=== PATIENT | female | born 1980 | race American Indian/Alaskan Native ===

== ENCOUNTER 2016-08-26 21:42 | Emergency (ER) | payer OTHER ==
[2016-08-26] MEDS ORDERED: PHENERGAN PO ONE (23:48)
[2016-08-26] MEDS ORDERED: TORADOL IM ONE (23:48)
--- NOTE | 2016-08-26 23:49 | Emergency Department Report ---
ED Headache HPI - General Chief Complaint: Headache Stated Complaint: GILMAN/COLD SWEATS/EYES LIGHT SENSITIVE Time Seen by Provider: 08/26/16 23:39 - History of Present Illness Initial Comments: This is a pleasant 36-year-old female who does not have a history of headaches. She reports headache in the frontal region for the last 4 days. It does come and go. She has tried Goody powder without relief. She did try sinus remedy today with moderate improvement. She feels tension in the back of her neck as well. Patient states that she did have headache once one year ago that also resolved with chiropractic. She denies any specific trauma she denies fevers. She is had occasional nausea but no vomiting with this. She denies any neurologic changes otherwise. No vision changes reported. The pain is throbbing in nature. No radiation is reported. Some nasal congestion as well as history of allergies. Quality: severe Associated Symptoms: nausea/vomiting, nasal congestion. denies: fatigue Allergies/Adverse Reactions: Allergies No Known Allergies Allergy (Unverified 07/20/16 16:18) Home Medications: Ambulatory Orders ALBUTEROL Inhaler [ProAir HFA Inhaler] 1 - 2 puff IH Q4H PRN 08/26/16 Ranitidine HCl [Zantac 150 MG TAB] 150 mg PO DAILY 08/26/16 clonazePAM [Klonopin] 1 mg PO Q8H PRN 08/26/16 ED Review of Systems ROS: Stated complaint: GILMAN/COLD SWEATS/EYES LIGHT SENSITIVE Other details as noted in HPI Comment: All other systems reviewed and negative Constitutional: denies: chills, fever Eyes: denies: eye pain, eye discharge, vision change ENT: congestion. denies: ear pain, throat pain Respiratory: denies: cough, shortness of breath, wheezing Cardiovascular: denies: chest pain, palpitations Endocrine: no symptoms reported Gastrointestinal: nausea. denies: abdominal pain, diarrhea Genitourinary: denies: urgency, dysuria, discharge Musculoskeletal: denies: back pain, joint swelling, arthralgia Skin: denies: rash, lesions Neurological: headache. denies: weakness, paresthesias Psychiatric: denies: anxiety, depression Hematological/Lymphatic: denies: easy bleeding, easy bruising ED Past Medical Hx - Past Medical History Previous Medical History?: Yes Hx Asthma: Yes Additional medical history: Acid reflux, anxiety - Surgical History Past Surgical History?: No - Social History Smoking Status: Current Every Day Smoker Substance Use Type: Alcohol - Medications Home Medications: Home Medications Medication Instructions Recorded Confirmed Last Taken Type ALBUTEROL Inhaler [ProAir HFA 1 - 2 puff IH Q4H PRN 08/26/16 08/26/16 Unknown History Inhaler] Ranitidine HCl [Zantac 150 MG TAB] 150 mg PO DAILY 08/26/16 08/26/16 08/26/16 History clonazePAM [Klonopin] 1 mg PO Q8H PRN 08/26/16 08/26/16 08/26/16 History ED Physical Exam - General Limitations: No Limitations General appearance: alert, in distress (uncomfortable due to pains) - Head Head exam: Present: atraumatic, normocephalic, normal inspection - Eye Eye exam: Present: normal appearance, PERRL, EOMI. Absent: scleral icterus - ENT ENT exam: Present: normal exam, mucous membranes moist, other (cobblestoning in posterior pharynx. no facial tenderness) - Neck Neck exam: Present: normal inspection, tenderness (posteriorly tension extending down to the trapezius bilaterally.), full ROM. Absent: meningismus, lymphadenopathy - Respiratory Respiratory exam: Present: normal lung sounds bilaterally. Absent: respiratory distress, wheezes, rales - Cardiovascular Cardiovascular Exam: Present: regular rate, normal rhythm. Absent: systolic murmur, diastolic murmur, rubs, gallop - GI/Abdominal GI/Abdominal exam: Present: soft, normal bowel sounds. Absent: distended, tenderness, guarding - Extremities Exam Extremities exam: Present: normal inspection, full ROM. Absent: pedal edema, calf tenderness - Back Exam Back exam: Present: normal inspection. Absent: tenderness, CVA tenderness (R), CVA tenderness (L) - Neurological Exam Neurological exam: Present: alert, oriented X3, CN II-XII intact, normal gait, other (nml sensation grossly) - Psychiatric Psychiatric exam: Present: normal affect, normal mood - Skin Skin exam: Present: warm, dry, intact, normal color. Absent: rash ED Course Vital Signs 08/26/16 08/26/16 08/27/16 22:01 23:43 00:02 Temperature 98.6 F 98.2 F Pulse Rate 92 H 96 H Respiratory 18 18 20 Rate Blood Pressure 137/90 Blood Pressure 117/75 [Left] O2 Sat by Pulse 97 99 99 Oximetry - Reevaluation(s) Reevaluation #1: 08/27/16 00:25 There are components of this headache did seem like tension and some components that seem like sinus headache I suspect there is a combination. Patient was given Toradol here as well as Phenergan for sleep and nausea. I feel this will be a good choice for her. I hope this will just abort the headache and she'll be a little reset. I have low suspicion for bad this. She is intact neurologically. She does not have strong history for headache. I do suspect the elevated there is an allergic component as well with allergies causing the postnasal drainage. I did encourage her to take decongestant or allergy medication daily. Safe for home. Critical care attestation.: If time is entered above; I have spent that time in minutes in the direct care of this critically ill patient, excluding procedure time. ED Disposition Clinical Impression: Headache Qualifiers: Headache type: unspecified Headache chronicity pattern: acute headache Intractability: not intractable Qualified Code(s): R51 - Headache Disposition: DISCHARGED TO HOME OR SELFCARE Is pt being admited?: No Does the pt Need Aspirin: No Condition: Stable Instructions: Acute Headache (ED) Additional Instructions: Continue with the decongestant or antiallergy medication at home. Drink plenty of fluids. Get plenty of rest. Referrals: JASWINDER ALEJO MD [Primary Care Provider] - 3-5 Days Time of Disposition: 23:50
[2016-08-27 00:20] VITALS: BP 139/88
== END 2016-08-27 00:30 | disposition home or self-care (01) ==
LOC: ED 21:42
DX: R51 Headache (principal); J45.909 Unspecified asthma, uncomplicated; F41.9 Anxiety disorder, unspecified; K21.9 Gastro-esophageal reflux disease without esophagitis; F17.200 Nicotine dependence, unspecified, uncomplicated
CPT/HCPCS: 96372; 99282; J1885; Q0169

== ENCOUNTER 2017-06-20 21:05 | Emergency (ER) | payer OTHER ==
[2017-06-20 22:11] VITALS: BP 130/85
[2017-06-20] MEDS ORDERED: TYLENOL PO ONE (22:11)
[2017-06-20] MEDS ORDERED: TYLENOL ONE (22:14)
[2017-06-21] MEDS ORDERED: TYLENOL ONE (01:35)
[2017-06-21] MEDS ORDERED: MOTRIN PO ONE (03:48)
[2017-06-21] MEDS ORDERED: MOTRIN ONE (03:50)
--- NOTE | 2017-06-21 06:38 | Emergency Department Report ---
Minor Respiratory - HPI Chief Complaint: Upper Respiratory Infection Stated Complaint: FLU SX Time Seen by Provider: 06/21/17 06:37 Duration: 1 Day Severity: moderate Minor Respiratory: Yes Rhinorrhea, Yes Able to Tolerate Fluids, Yes Cough, Yes Sick Contacts (emmanuel), Yes Fever, No Sore Throat, No Ear Pain, No Hemoptysis, No Chest Pain, No Shortness of Breath Other History: This is a 36 y.o. female that presents with generalized body aches, fever, and chills that started yesterday. 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 Patient states she went to class and all of a sudden so started feeling chills, body aches, and fatigue. She went home and took OTC cold medication with minimal improvement. Denies SOB, nausea, vomiting, chest pain, and sore throat. ED Review of Systems ROS: Stated complaint: FLU SX Other details as noted in HPI Constitutional: see HPI, chills, fever, malaise. denies: diaphoresis, weakness ENT: congestion. denies: ear pain, throat pain, dental pain, hearing loss, epistaxis Respiratory: cough. denies: shortness of breath, wheezing Cardiovascular: denies: chest pain, palpitations Gastrointestinal: denies: abdominal pain, nausea, vomiting, diarrhea Musculoskeletal: myalgia (genearlized body aches) Neurological: denies: headache, weakness, paresthesias ED Past Medical Hx - Past Medical History Previous Medical History?: Yes Hx Asthma: Yes Additional medical history: Acid reflux, anxiety - Surgical History Past Surgical History?: Yes Additional Surgical History: nose - Social History Smoking Status: Current Every Day Smoker Substance Use Type: Alcohol - Medications Home Medications: Home Medications Medication Instructions Recorded Confirmed Last Taken Type RX: ALBUTEROL Inhaler [ProAir HFA 1 - 2 puff IH Q4H PRN 08/26/16 08/26/16 Unknown History Inhaler] Ranitidine HCl [Zantac 150 MG TAB] 150 mg PO DAILY 08/26/16 08/26/16 08/26/16 History clonazePAM [Klonopin] 1 mg PO Q8H PRN 08/26/16 08/26/16 08/26/16 History Oseltamivir [Tamiflu] 75 mg PO BID 5 Days #10 cap 06/21/17 Unknown Rx RX: Benzonatate 200 mg PO DAILY PRN #30 capsule 06/21/17 Unknown Rx RX: Cetirizine HCl [Zyrtec] 10 mg PO DAILY #30 tablet 06/21/17 Unknown Rx RX: Ibuprofen 800 mg PO Q6H PRN #20 tablet 06/21/17 Unknown Rx Minor Respiratory Exam - Exam General: Vital signs noted. No distress. Alert and acting appropriately. HEENT: Yes Pharyngeal Erythema, Yes Moist Mucous Membranes, Yes Rhinorrhea, No Pharyngeal Exudates, No Conjuctival Injection, No Frontal Tenderness, No Maxillary Tenderness Ear: Neither TM Bulge, Neither TM Erythema, Neither EAC Pain, Neither EAC Discharge Neck: Yes Supple, No Adenopathy Lungs: Yes Good Air Exchange, Yes Cough, No Wheezes, No Ronchi, No Stridor, No Labored Respirations, No Retractions, No Use of Accessory Muscles, No Other Abnormal Lung Sounds Heart: Yes Regular, No Murmur Abdomen: Yes Normal Bowel Sounds, No Tenderness, No Peritoneal Signs Skin: No Rash, No Edema Neurologic: Alert and oriented, no deficits. Musculoskeletal: Unremarkable. ED Course Vital Signs 06/20/17 06/20/17 06/20/17 22:04 22:12 23:12 Temperature 101.6 F H Pulse Rate 133 H Respiratory 18 18 18 Rate Blood Pressure 130/85 O2 Sat by Pulse 97 Oximetry 06/21/17 06/21/17 06/21/17 03:52 04:52 06:00 Temperature 100 F H 98.5 F Pulse Rate 103 H Respiratory 18 18 18 Rate Blood Pressure O2 Sat by Pulse 98 Oximetry ED Medical Decision Making - Medical Decision Making This is a 36 y.o. Female presents with body aches, chills, and fever for 1 day. She is stable and examined by me. Patient given tylenol and ibuprofen once in ER. Temperature and HR trending down. Patient is non-toxic appearing. No labs or radiograph ordered. No acute signs of distress noted. Susceptible of influenza. Discussed plan with patient. She agreed with ER plan. Discharged home with option of tamiflu. Continue Supportive care. Encouraged to increase fluid intake to prevent dehydration. Follow up with primary care provider if symptoms are not improved in 5 days of therapy. Critical care attestation.: If time is entered above; I have spent that time in minutes in the direct care of this critically ill patient, excluding procedure time. ED Disposition Clinical Impression: Influenza, Viral syndrome Disposition: DC-01 TO HOME OR SELFCARE Is pt being admited?: No Does the pt Need Aspirin: No Condition: Stable Instructions: Influenza (ED), Viral Syndrome (ED) Additional Instructions: Wash hands frequently. Increase fluid intake to prevent dehydration and rest. Avoid large crowds and rest. Take medication as prescribed. Follow up with Primary Care Provider if SOB, fever uncontrolled, chest pain, or N/V. Prescriptions: RX: Benzonatate 200 mg PO DAILY PRN #30 capsule PRN Reason: Cough RX: Cetirizine HCl [Zyrtec] 10 mg PO DAILY #30 tablet RX: Ibuprofen 800 mg PO Q6H PRN #20 tablet PRN Reason: Pain Oseltamivir [Tamiflu] 75 mg PO BID 5 Days #10 cap Referrals: [facility] [Outside] - 3-5 Days [facility] [Outside] - 3-5 Days [facility] [Outside] - 3-5 Days Forms: Accompanied Note, Work/School Release Form(ED) Time of Disposition: 06:54 Print Language: WELSH
== END 2017-06-21 07:02 | disposition home or self-care (01) ==
LOC: ED 21:05
DX: J11.1 Influenza due to unidentified influenza virus with other respiratory manifestations (principal); B34.9 Viral infection, unspecified; F17.200 Nicotine dependence, unspecified, uncomplicated
CPT/HCPCS: 99282

== ENCOUNTER 2018-08-18 23:48 | Emergency (ER) | payer OTHER ==
[2018-08-19 00:01] VITALS: BP 139/97
[2018-08-19] MEDS ORDERED: TYLENOL PO ONE (03:09)
== END 2018-08-19 03:44 | disposition left against medical advice (07) ==
LOC: ED 23:48
DX: J03.90 Acute tonsillitis, unspecified (principal); Z53.21 Procedure and treatment not carried out due to patient leaving prior to being seen by health care provider

== ENCOUNTER 2020-06-29 02:41 | Emergency (ER) | payer OTHER ==
[2020-06-29 02:50] VITALS: BP 127/80
--- NOTE | 2020-06-29 03:28 | XRay Report ---
CHEST 2 VIEWS INDICATION / CLINICAL INFORMATION: cough productive for 1 month. COMPARISON: None available. FINDINGS: SUPPORT DEVICES: None. HEART / MEDIASTINUM: No significant abnormality. LUNGS / PLEURA: No significant pulmonary or pleural abnormality. No pneumothorax. ADDITIONAL FINDINGS: No significant additional findings. IMPRESSION: 1. No acute findings. Signer Name: Laury Robert MD Signed: 06/29/2020 3:24 AM Workstation Name: [id number]
--- NOTE | 2020-06-29 04:38 | Emergency Department Report ---
ED General Adult HPI - General Chief complaint: Upper Respiratory Infection Stated complaint: DRY COUGH/HEADACHE/POST NASAL DRIP Time Seen by Provider: 06/29/20 04:29 Source: patient Mode of arrival: Ambulatory Limitations: No Limitations - History of Present Illness Initial comments: pt is a 39 y/o aaf who presents for sinus pain & pressure for 1 week with cough productive yellow green. pt has hx of recurring sinusitis. pain today is 5/10 aching pressure, pain is exacerbated frontal headache to usual location, intensity, and duration. pt denies photophobia no n/v, no dizziness, pos for intermittent ear pain. - Related Data Home Medications Medication Instructions Recorded Confirmed Last Taken clonazePAM [Klonopin] 1 mg PO Q8H PRN 08/26/16 08/26/16 08/26/16 raNITIdine HCl [Zantac 150 MG TAB] 150 mg PO DAILY 08/26/16 08/26/16 08/26/16 Previous Rx's Medication Instructions Recorded Last Taken Type Benzonatate 200 mg PO DAILY PRN #30 capsule 06/21/17 Unknown Rx Cetirizine HCl [Zyrtec 10mg tab] 10 mg PO DAILY #30 tablet 06/21/17 Unknown Rx Ibuprofen [Ibuprofen 800] 800 mg PO Q6H PRN #20 tablet 06/21/17 Unknown Rx Oseltamivir [Tamiflu] 75 mg PO BID 5 Days #10 cap 06/21/17 Unknown Rx Acetaminophen/Codeine [Tylenol 1 tab PO Q6H PRN #12 tab 06/29/20 Unknown Rx /Codeine # 3 tab] Albuterol Mdi (or & Nicu Only) 1 - 2 puff IH Q4H PRN #1 each 06/29/20 Unknown Rx [ProAir HFA Inhaler] Amoxicillin/Potassium Clav 1 each PO BID #20 tablet 06/29/20 Unknown Rx [Augmentin 875-125 Tablet] predniSONE [Deltasone] 40 mg PO QDAY 5 Days #10 tab 06/29/20 Unknown Rx Allergies Allergy/AdvReac Type Severity Reaction Status Date / Time No Known Allergies Allergy Verified 06/20/17 22:29 ED Review of Systems ROS: Stated complaint: DRY COUGH/HEADACHE/POST NASAL DRIP Other details as noted in HPI Constitutional: malaise. denies: chills, fever Eyes: denies: eye pain, eye discharge, vision change ENT: ear pain, congestion, other (bilat sinus pressure) Respiratory: cough. denies: shortness of breath, wheezing Cardiovascular: denies: chest pain, palpitations Endocrine: no symptoms reported Gastrointestinal: denies: abdominal pain, nausea, diarrhea Genitourinary: denies: urgency, dysuria, discharge Musculoskeletal: denies: back pain, joint swelling, arthralgia Skin: denies: rash, lesions Neurological: denies: headache, weakness, paresthesias Psychiatric: denies: anxiety, depression Hematological/Lymphatic: denies: easy bleeding, easy bruising ED Past Medical Hx - Past Medical History Previous Medical History?: Yes Hx Asthma: Yes Additional medical history: Acid reflux, anxiety - Surgical History Past Surgical History?: Yes Additional Surgical History: nose. tonsil - Social History Smoking Status: Current Every Day Smoker Substance Use Type: Alcohol - Medications Home Medications: Home Medications Medication Instructions Recorded Confirmed Last Taken Type clonazePAM [Klonopin] 1 mg PO Q8H PRN 08/26/16 08/26/16 08/26/16 History raNITIdine HCl [Zantac 150 MG TAB] 150 mg PO DAILY 08/26/16 08/26/16 08/26/16 History Benzonatate 200 mg PO DAILY PRN #30 capsule 06/21/17 Unknown Rx Cetirizine HCl [Zyrtec 10mg tab] 10 mg PO DAILY #30 tablet 06/21/17 Unknown Rx Ibuprofen [Ibuprofen 800] 800 mg PO Q6H PRN #20 tablet 06/21/17 Unknown Rx Oseltamivir [Tamiflu] 75 mg PO BID 5 Days #10 cap 06/21/17 Unknown Rx Acetaminophen/Codeine [Tylenol 1 tab PO Q6H PRN #12 tab 06/29/20 Unknown Rx /Codeine # 3 tab] Albuterol Mdi (or & Nicu Only) 1 - 2 puff IH Q4H PRN #1 each 06/29/20 Unknown Rx [ProAir HFA Inhaler] Amoxicillin/Potassium Clav 1 each PO BID #20 tablet 06/29/20 Unknown Rx [Augmentin 875-125 Tablet] predniSONE [Deltasone] 40 mg PO QDAY 5 Days #10 tab 06/29/20 Unknown Rx ED Physical Exam - General Limitations: No Limitations General appearance: alert, in no apparent distress - Head Head exam: Present: atraumatic, normocephalic - Eye Eye exam: Present: normal appearance, PERRL, EOMI Pupils: Present: normal accommodation - ENT ENT exam: Present: mucous membranes moist - Expanded ENT Exam Expanded Ear exam: Present: normal external inspection, other (turbinate boggy , erythema, yellow drainage ) TM/Canal exam: Erythema: Right TM, Left TM, Canal Tenderness: Right TM, Left TM Throat exam: Positive: other (bilat frontal and maxillary sinus tendernes to palpation ). Negative: tonsillar erythema, tonsillomegaly, tonsillar exudate, R peritonsillar mass, L peritonsillar mass - Neck Neck exam: Present: normal inspection, full ROM. Absent: tenderness, lymphadenopathy, thyromegaly - Respiratory Respiratory exam: Present: normal lung sounds bilaterally. Absent: respiratory distress, wheezes, rales, rhonchi, stridor, chest wall tenderness - Cardiovascular Cardiovascular Exam: Present: regular rate, normal rhythm, normal heart sounds. Absent: systolic murmur, diastolic murmur, rubs, gallop - GI/Abdominal GI/Abdominal exam: Present: soft, normal bowel sounds. Absent: distended, tenderness - Rectal Rectal exam: Absent: deferred - Extremities Exam Extremities exam: Present: normal inspection, full ROM, normal capillary refill. Absent: tenderness, pedal edema - Back Exam Back exam: Present: normal inspection, full ROM. Absent: tenderness, vertebral tenderness - Neurological Exam Neurological exam: Present: alert, oriented X3, CN II-XII intact, normal gait, reflexes normal. Absent: motor sensory deficit - Expanded Neurological Exam Expanded Patient oriented to: Present: person, place, time Speech: Present: fluid speech Cranial nerves: EOM's Intact: Normal, Gag Reflex: Normal Cerebellar function: Finger to Nose: Normal Motor strength exam: RUE: 5, LUE: 5, RLE: 5, LLE: 5 DTR: knee (R): 2+, knee (L): 2+ Best Eye Response ([place]): (4) open spontaneously Best Motor Response ([place]): (6) obeys commands Best Verbal Response (Fredi): (5) oriented Fredi Total: 15 - Psychiatric Psychiatric exam: Present: normal affect - Skin Skin exam: Present: warm, dry, intact, normal color. Absent: rash ED Course Vital Signs 06/29/20 02:47 Temperature 98.4 F Pulse Rate 81 Respiratory 18 Rate Blood Pressure 127/80 O2 Sat by Pulse 96 Oximetry ED Medical Decision Making - Radiology Data Radiology results: report reviewed, image reviewed FINDINGS: SUPPORT DEVICES: None. HEART / MEDIASTINUM: No significant abnormality. LUNGS / PLEURA: No significant pulmonary or pleural abnormality. No pneu mothorax. ADDITIONAL FINDINGS: No significant additional findings. IMPRESSION: 1. No acute findings. Signer Name: Laury Robert MD Signed: 06/29/2020 3:24 AM Workstation Name: [id number] Transcribed By: DT Dictated By: Cuate Robert MD Electronically Authenticated By: Cuate Robert MD Signed Date/Time: 06/29/20323 DD/ 2 TD/TT: - Medical Decision Making sinusitis will tx for same pt will follow up with pcp in 2-3 days Critical care attestation.: If time is entered above; I have spent that time in minutes in the direct care of this critically ill patient, excluding procedure time. ED Disposition Clinical Impression: Bronchitis Sinusitis Qualifiers: Sinusitis location: maxillary Chronicity: acute Recurrence: recurrent Qualified Code(s): J01.01 - Acute recurrent maxillary sinusitis Disposition: TO HOME OR SELFCARE Is pt being admited?: No Does the pt Need Aspirin: No Condition: Stable Instructions: Chronic Bronchitis (ED), Sinus Headache, Sinusitis, Adult, How to Perform a Sinus Rinse Prescriptions: Amoxicillin/Potassium Clav [Augmentin 875-125 Tablet] 1 each PO BID #20 tablet predniSONE [Deltasone] 40 mg PO QDAY 5 Days #10 tab Albuterol Mdi (or & Nicu Only) [ProAir HFA Inhaler] 1 - 2 puff IH Q4H PRN #1 each PRN Reason: sob Acetaminophen/Codeine [Tylenol /Codeine # 3 tab] 1 tab PO Q6H PRN #12 tab PRN Reason: cough Referrals: PRIMARY CARE, [Primary Care Provider] - 3-5 Days Time of Disposition: 04:52
== END 2020-06-29 05:01 | disposition home or self-care (01) ==
LOC: ED 02:41
DX: J40 Bronchitis, not specified as acute or chronic (principal); J32.9 Chronic sinusitis, unspecified; F17.200 Nicotine dependence, unspecified, uncomplicated; Z98.890 Other specified postprocedural states; Z79.899 Other long term (current) drug therapy; Z79.1 Long term (current) use of non-steroidal anti-inflammatories (NSAID); Z79.2 Long term (current) use of antibiotics
CPT/HCPCS: 71046

== ENCOUNTER 2021-03-29 12:40 | Emergency (ER) | payer SELFPAY ==
[2021-03-29 15:16] LABS: HCG Qualitative,Urine Negative (Negative)
[2021-03-29 15:17] LABS: Bacteria,Urine 1+ /HPF (Negative); Bilirubin,Urine NEG (Negative); Blood,Urine SM (Negative); Color,Urine Yellow (Yellow); Mucus,Urine FEW /HPF; Protein,Urine <15 mg/dL mg/dL (Negative)
[2021-03-29 15:19] LABS: Hematocrit 42.3 % (30.3-42.9); Hemoglobin 14.1 gm/dl (10.1-14.3); Mean Corpuscular HGB Conc 33 % (30-34); Mean Corpuscular Volume 95 fl (79-97); Platelet Count 263 K/mm3 (140-440); Red Blood Count 4.45 M/mm3 (3.65-5.03); Red Cell Distribution Width 12.9 % (13.2-15.2)
--- NOTE | 2021-03-29 15:34 | Emergency Department Report ---
ED General Adult HPI - General Chief complaint: Weakness Stated complaint: WEAK,FAINT,QUEZZY PUI?: No Time Seen by Provider: 03/29/21 13:48 Source: patient Mode of arrival: Ambulatory - History of Present Illness Initial comments: 40 YO COMES TO ER CO NAUSEA. NO VOMITING. NO DYSURIA. NO CP. NO SOB. NO DIARRHEA. NO CONSTIPATION. NON TOXIC ON EXAM -: Gradual Improves with: none Worsens with: none Associated Symptoms: denies other symptoms Treatments Prior to Arrival: none - Related Data Home Medications Medication Instructions Recorded Confirmed Last Taken clonazePAM [Klonopin] 1 mg PO Q8H PRN 08/26/16 08/26/16 08/26/16 Previous Rx's Medication Instructions Recorded Last Taken Type Famotidine [Pepcid] 20 mg PO DAILY #30 tablet 03/29/21 Unknown Rx Ondansetron [Zofran Odt] 4 mg PO Q8HR PRN #10 tab.rapdis 03/29/21 Unknown Rx Allergies Allergy/AdvReac Type Severity Reaction Status Date / Time No Known Allergies Allergy Verified 06/20/17 22:29 ED Review of Systems ROS: Stated complaint: WEAK,FAINT,QUEZZY Other details as noted in HPI Comment: All other systems reviewed and negative ED Past Medical Hx - Past Medical History Previous Medical History?: Yes Hx GERD: Yes Hx Asthma: Yes Additional medical history: Acid reflux, anxiety - Surgical History Past Surgical History?: Yes Additional Surgical History: nose. tonsil - Family History Family history: no significant - Social History Smoking Status: Current Every Day Smoker Substance Use Type: Alcohol - Medications Home Medications: Home Medications Medication Instructions Recorded Confirmed Last Taken Type clonazePAM [Klonopin] 1 mg PO Q8H PRN 08/26/16 08/26/16 08/26/16 History Famotidine [Pepcid] 20 mg PO DAILY #30 tablet 03/29/21 Unknown Rx Ondansetron [Zofran Odt] 4 mg PO Q8HR PRN #10 tab.rapdis 03/29/21 Unknown Rx ED Physical Exam - General General appearance: alert, in no apparent distress - Head Head exam: Present: atraumatic, normocephalic - Eye Eye exam: Present: normal appearance - ENT ENT exam: Present: mucous membranes moist - Neck Neck exam: Present: normal inspection - Respiratory Respiratory exam: Present: normal lung sounds bilaterally. Absent: respiratory distress - Cardiovascular Cardiovascular Exam: Present: regular rate, normal rhythm. Absent: systolic murmur, diastolic murmur, rubs, gallop - GI/Abdominal GI/Abdominal exam: Present: soft, normal bowel sounds - Extremities Exam Extremities exam: Present: normal inspection - Back Exam Back exam: Present: normal inspection - Neurological Exam Neurological exam: Present: alert, oriented X3 - Psychiatric Psychiatric exam: Present: normal affect, normal mood - Skin Skin exam: Present: warm, dry, intact, normal color. Absent: rash ED Medical Decision Making - Lab Data Result diagrams: 03/29/21 15:06 03/29/21 15:06 - Medical Decision Making Labs 03/29/21 03/29/21 03/29/21 15:06 15:06 Unknown WBC 8.9 RBC 4.45 Hgb 14.1 Hct 42.3 MCV 95 MCH 32 MCHC 33 RDW 12.9 L Plt Count 263 Sodium 139 Potassium 5.1 H Chloride 104.0 Carbon Dioxide 22 Anion Gap 18 BUN 10 Creatinine 0.9 Estimated GFR > 60 BUN/Creatinine Ratio 11 Glucose 103 H Calcium 9.1 Total Bilirubin 0.50 AST 23 ALT 29 Alkaline Phosphatase 44 Total Protein 7.6 Albumin 4.5 Albumin/Globulin Ratio 1.5 Lipase 34 Urine Color Yellow Urine Turbidity Slightly-cloudy Urine pH 5.0 Ur Specific [place] 1.024 Urine Protein <15 mg/dl Urine Glucose (UA) Neg Urine Ketones Neg Urine Blood Sm Urine Nitrite Neg Ur Reducing Substances Not Reportable Urine Bilirubin Neg Urine Ictotest Not Reportable Urine Urobilinogen 2.0 Ur Leukocyte Esterase Neg Urine WBC (Auto) 1.0 Urine RBC (Auto) 4.0 U Epithel Cells (Auto) 14.0 H Urine Bacteria (Auto) 1+ Urine Mucus Few Urine HCG, Qual Negative VS NORMAL PER MANUAL CHARTING BY RN SEE DOWN TIME FORMS LABS NOTED PREG NEG UA NORMAL AMBULATORY NON ILL NON TOXIC TAKING PO DC HOME WITH DC PLAN OF CARE INCLUDING MEDS, FOLLOW UP. SHE VERBALIZES UNDERSTANDING. - Differential Diagnosis GERD; UTI; PREG Critical care attestation.: If time is entered above; I have spent that time in minutes in the direct care of this critically ill patient, excluding procedure time. ED Disposition Clinical Impression: Nausea Disposition: 01 HOME / SELF CARE / HOMELESS Is pt being admited?: No Does the pt Need Aspirin: No Condition: Stable Instructions: Nausea, Adult Additional Instructions: MED ORDERED TODAY LABS AND URINE ALL NORMAL FOLLOW WITH PCP IF PERSISTS REFERRAL BELOW Prescriptions: Famotidine [Pepcid] 20 mg PO DAILY #30 tablet Ondansetron [Zofran Odt] 4 mg PO Q8HR PRN #10 tab.rapdis PRN Reason: Vomiting Referrals: ARELY MORALES MD [Staff Physician] - 3-5 Days Time of Disposition: 15:57
[2021-03-29 15:48] LABS: Alanine Aminotransferase 29 units/L (7-56); Albumin 4.5 g/dL (3.9-5); BUN/Creatinine Ratio 11; Blood Urea Nitrogen 10 mg/dL (7-17); Calcium 9.1 mg/dL (8.4-10.2); Hemolysis Index 19
== END 2021-03-29 16:39 | disposition home or self-care (01) ==
LOC: ED 12:40
DX: R11.0 Nausea (principal); K21.9 Gastro-esophageal reflux disease without esophagitis; J45.909 Unspecified asthma, uncomplicated; F17.200 Nicotine dependence, unspecified, uncomplicated; Z72.89 Other problems related to lifestyle; Z79.899 Other long term (current) drug therapy
CPT/HCPCS: 36415; 80053; 81001; 81025; 83690; 85027; 99283

== ENCOUNTER 2021-03-31 14:24 | Outpatient (CLI) | payer OTHER | END 2021-03-31 14:25 | disposition home or self-care (01) | LOC: MAMMO 14:24 | PROVIDERS: ATTEND Internal Medicine | DX: Z12.31 Encounter for screening mammogram for malignant neoplasm of breast (principal) | CPT/HCPCS: 77067 ==